=== PATIENT | female | born 1980 | race Caucasian/White ===

== ENCOUNTER 2018-12-16 05:24 | Observation (INO) | payer BC ==
[2018-12-11 11:26] LABS: HEMATOCRIT 39.9 % (36.0-48.0); HEMOGLOBIN 13.3 g/dL (12-16); LYMPHOCYTES 35.2 % (15-50); MCH 26.8 pg (26.0-34.0); MCHC 33.3 g/dL (31.0-37.0); MCV 80.3 fL (80.0-100.0); MEAN PLATELET VOLUME 8.9 fL (7.4-10.4); NEUTROPHILS 59.2 % (40-80); PLATELET COUNT 417 10x3/uL (130-400); RBC 4.97 10x6/uL (4.00-5.40); RDW 13.1 % (11.5-14.5); WBC 9.2 10x3/uL (4.8-10.8)
[2018-12-11 11:51] LABS: CALC OSMOLALITY 278 mosm/kg (275-300); CALCIUM 8.7 mg/dL (8.5-10.1); CARBON DIOXIDE 24.9 mmol/L (21.0-32.0); CHLORIDE - SERUM 103 mmol/L (98-107); CREATININE - SERUM 0.8 mg/dL (0.6-1.3); GLUCOSE 108 mg/dL (74-106); POTASSIUM - SERUM 3.9 mmol/L (3.5-5.1); SODIUM 140 mmol/L (136-145); UREA NITROGEN 11 mg/dL (7-18); eGFR NON AFRICAN AMERICAN 85 mL/min (90-120)
[~2018-12-16] VITALS: Ht 170.2 cm; Wt 124.1 kg
[~2018-12-16 05:24] MED LIST: PROVERA10 MG PO
[2018-12-16 05:57] VITALS: BP 158/100; BMI 43.6
[2018-12-16 06:41] LABS: HCG URINE NEGATIVE (NEGATIVE)
[2018-12-16 13:26] VITALS: BP 131/69
[2018-12-16 21:13] VITALS: BP 161/80; Ht 170.2 cm; Wt 124.1 kg
[2018-12-16 23:02] VITALS: BP 188/86
[2018-12-17 04:10] VITALS: BP 176/85
[2018-12-17] MEDS ORDERED: PERCOCET 5-3251 TAB PO (15:35)
[2018-12-17] MEDS ORDERED: NEURONTIN 300300 MG PO (15:35)
[2018-12-17 16:00] VITALS: BP 134/79
== END 2018-12-17 16:30 | disposition home or self-care (01) ==
LOC: D.OPS 05:24 → D.PAN 07:30 → D.OPS 08:15 → D.LD 13:10 → OBSVTIME 13:11 → D.LD 12-17 16:30
PROVIDERS: Obstetrics & Gynecology; ADMIT Obstetrics & Gynecology; ATTEND Obstetrics & Gynecology
DX: N93.9 Abnormal uterine and vaginal bleeding, unspecified (principal); D25.9 Leiomyoma of uterus, unspecified; N39.3 Stress incontinence (female) (male)

== ENCOUNTER → 2019-02-19 13:30 | Outpatient (CLI) | payer BC ==
[2018-12-16 21:13] VITALS: BMI 42.8
[~2019-02-19 13:30] MED LIST changes: +NEURONTIN 300300 MG PO; +PERCOCET 5-3251 TAB PO
== END | disposition home or self-care (01) ==
LOC: D.RAD 13:30
PROVIDERS: ATTEND Clinical Nurse Specialist Family Health
DX: M25.512 Pain in left shoulder (principal); M25.511 Pain in right shoulder